=== PATIENT | female | born 1980 | race Caucasian/White ===

== ENCOUNTER 2019-04-20 17:48 | Emergency (ER) | payer OTHER, SELFPAY ==
[2019-04-20 17:58] VITALS: BP 121/86; PULSE 88; RESP 16; O2SAT 100; BMI 24.7
--- NOTE | 2019-04-20 18:24 | W.ED.EAR ---
HPI - Ear Problem General: Chief complaint: Ear Stated complaint: LEFT EAR PAIN Time Seen by Provider: 04/20/19 18:00 History of Present Illness: HPI Narrative: Patient is a 39-year-old female who comes in with ear pain and nasal congestion. Ear pain started yesterday and has gotten worse today. She feels a little pain on right ear but it's her left ear that is the most painful. Denies any drainage and says that hearing out of her left ear sounds little muffled. No external ear pain when touched. Denies a sore throat. Denies any fevers, chest pain, shortness breath, nausea, vomiting, bladder or bowel symptoms. Associated symptoms: Reports ear or mastoid pain; Denies fever(s), headache(s) or neck pain Review of Systems Const: Denies: fever, chills or fatigue Eyes: Denies: change in vision or eye discomfort ENMT: Reports: ear pain, nasal discharge and nasal congestion; Denies: throat pain or painful swallowing Card: Denies: chest pain, palpitations, edema, swelling of feet/ankles, shortness of breath on exertion or shortness of breath when lying down Resp: Denies: shortness of breath, productive cough or non-productive cough GI: Denies: abdominal pain, nausea, vomiting, diarrhea, constipation or blood in stool : Denies: flank pain, painful urination or blood in urine Musc: Denies: neck pain, back pain or extremity swelling Skin/Breast: Denies: rash or new lesion Neuro: Denies: headache, numbness in extremities or weakness in extremities PFSH ED PFSH: Social History Smoking and tobacco status: never smoked Female Reproductive History: Date of last menstrual period: 04/15/19 Physical Exam Const: COMMON NORMALS: oriented x3 HENMT: COMMON NORMALS: normocephalic, external ears normal and external nose normal HEAD & SCALP: normocephalic FACE & SINUS: sinuses nontender NOSE: external nose normal, no nasal discharge and mucous membranes and turbinates abnormal erythematous EXTERNAL EAR: Yes external ears normal TYMPANIC MEMBRANE: TM abnormal TM laterality: right Details: fluid behind TM and left Details: bulging, erythematous and fluid behind TM MOUTH: oral and palatal mucosa normal THROAT: posterior oropharynx normal and uvula midline Neck/C-Spine: COMMON NORMALS: no lymphadenopathy and supple GENERAL: Yes normal visual inspection Resp: COMMON NORMALS: normal respiratory effort, no retractions, no use of accessory muscles and clear to auscultation bilaterally AUSCULTATION: clear to auscultation bilaterally Cardio: COMMON NORMALS: regular rate, regular rhythm, S1 normal heart sound, S2 normal heart sound, no gallops, no clicks, no murmurs and peripheral pulses 2+ throughout RATE: regular rate RHYTHM: regular rhythm HEART SOUNDS: S1 normal and S2 normal PERIPHERAL PULSES: pulses 2+ throughout GI: COMMON NORMALS: normal to inspection, nondistended, normoactive bowel sounds, soft to palpation, non-tender and no masses PALPATION: Yes soft : COMMON NORMALS: Yes no CVA tenderness BLADDER/KIDNEY EXAM: Yes no CVA tenderness Back/Pelvis: COMMON NORMALS: no CVA tenderness Extremity: COMMON NORMALS: normal to inspection Neuro: COMMON NORMALS: oriented x3 and moves all extremities Skin: COMMON NORMALS: no rashes or lesions noted GENERAL SKIN EXAM: no rashes or lesions noted and dry skin Course Vital Signs: Vital signs: Vital Signs Temperature 97.4 F L 04/20/19 18:37 Pulse Rate 84 04/20/19 18:37 Respiratory Rate 16 04/20/19 18:37 Blood Pressure 111/82 04/20/19 18:37 Pulse Oximetry 99 04/20/19 18:37 Discharge Plan Discharge Patient Disposition: Home, Self-Care Clinical Impression: Otitis media Qualifiers: Otitis media type: serous Chronicity: acute Laterality: left Recurrence: non-recurrent Qualified Code(s): H65.02 - Acute serous otitis media, left ear Condition: Stable Prescriptions: New amoxicillin 500 mg capsule 500 mg PO BID 7 Days Qty: 14 RF: 0 Discharge Orders: Discharge Order (Routine); Ordered 04/20/19 Ordered By: Mahesh Samuel Discharge Diet: Regular Discharge Activity: Resume usual activity Patient Instructions: Otitis Media - Adult Activity Restrictions/Additional Instructions: Follow-up with your PCP in 7-10 days for reevaluation. Take full course of antibiotic as prescribed. Drink plenty of fluids and stay hydrated. He can also take either Tylenol or ibuprofen for fever. Discharge Date/Time: 04/20/19 18:44 Coding Level of Care Code ED Furniture Mover Driver for Chg Fwd Exam Comprehensive
[2019-04-20 18:37] VITALS: BP 111/82; PULSE 84; RESP 16; TEMP 36.3; O2SAT 99
== END 2019-04-20 18:44 | disposition home or self-care (01) ==
PROVIDERS: Emergency Provider Physician Assistant
DX: H66.92 Otitis media, unspecified, left ear (principal)
CPT/HCPCS: 99281; 99282

== ENCOUNTER 2021-10-24 01:51 | Observation (INO) | payer OTHER, SELFPAY ==
[2021-10-24] VITALS (16 sets, daily range): BP systolic 98–121; BP diastolic 55–78; PULSE 62–102; RESP 12–18; TEMP 36.6–37.2; O2SAT 95–100; BMI 27.4
[2021-10-24] MEDS: piperacillin-tazobactam 3.375 GM in sodium chloride 0.9% (plus) 50 ML IV ×2 (02:54→18:07)
[2021-10-24] MEDS: sodium chloride 0.9% 1,000 ML 125 ML IV ×2 (02:54→21:29)
--- NOTE | 2021-10-24 05:55 | PC.NURSE ---
Urine HCG negative results confirmed from [facility] in chart.
[2021-10-24] MEDS: ondansetron 2 mg/ML SDV 2 mL 4 MG IVP ×2 (06:29→23:49)
[2021-10-24] MEDS: HYDROmorphone 1 mg/mL INJ 1 mL IVP (06:32)
--- NOTE | 2021-10-24 07:16 | ANES.PREANE2 ---
Pre-Anesthetic Assessment Height/Weight: Height 1.52 m Weight 63.73 kg Temp Pulse Resp BP Pulse Ox O2 Del Method 98.9 F 81 16 121/78 98 10/24/21 02:04 10/24/21 02:04 10/24/21 06:32 10/24/21 02:04 10/24/21 02:04 10/24/21 02:04 Preop Diagnosis: acute appendicitis Operation Date: 10/24/21 10:20 Proposed Procedures p Appendectomy(Not Applicable) - Joni Rodrigues DO Familial anesthetic complications: None Was Beta Liz taken within 24 hours: N/A Was Clonidine taken within 24 hours: N/A Last intake: Intake Last Liquid Date 10/23/21 Last Liquid Time 20:00 Last Solid Date 10/23/21 Last Solid Time 13:00 Social Alcohol (Occasionally ) and No tobacco Exam alert, oriented x 3, clear to auscultation bilaterally and regular rate & rhythm Airway Submandibular: within normal limits Cervical ROM: within normal limits Mallampati: Class I Dentition: full History/ROS No significant complaints Pulmonary None reported CV/HEM None reported METS > 4 None reported Hepatic None reported GI acute appendicitis Metabolic None reported Musc/skel None reported Neuropsych None reported Anesthetic Plan ASA status: 1 Anesthesia: Anesthesia Evaluation and General Other: We discussed risk and benefits of general anesthesia including PONV, sore throat (sometimes severe), corneal abrasion, positioning and peripheral nerve injuries, life threatening allergic reaction, post operative ICU admission requiring prolonged intubation, stroke, heart attack, , and rare incidences of recall. Patient consents to proceed with general anesthesia. Risk of > 500 ml blood loss (7ml/kg in children): No Other Pertinent Information Vomited twice today Medications/Allergies Allergies Allergy/AdvReac Type Severity Reaction Status Date / Time codeine Allergy ADR-Vomitin Verified 04/20/19 18:06 g Current Medications Generic Name Dose Route Start Last Admin Trade Name Freq PRN Reason Stop Dose Admin Hydromorphone HCl 1 mg 10/24/21 02:02 10/24/21 06:32 Hydromorphone 1 Mg/Ml Inj 1 Ml IVP 1 mg Q4H PRN Administration SEVERE PAIN Sodium Chloride 1,000 mls @ 125 mls/hr 10/24/21 02:15 10/24/21 02:54 Sodium Chloride 0.9% IV 125 mls/hr .Q8H MONICA Administration Piperacillin Sod/Tazobactam 50 mls @ 12.5 mls/hr 10/24/21 02:15 10/24/21 02:54 Sod 3.375 gm/ Sodium Chloride IV 12.5 mls/hr Q8H MONICA Administration Protocol Ondansetron HCl 4 mg 10/24/21 02:02 10/24/21 06:29 Ondansetron 2 Mg/Ml Sdv 2 Ml IVP 4 mg Q6H PRN Administration NAUSEA AND VOMITING PFSH Anesthesia Surgical History (Updated 10/24/21 @ 08:08 by Joni Rodrigues DO) History of section History of tubal ligation Social History Smoking and tobacco status: never smoked Female Reproductive History Date of last menstrual period: 04/15/19 Data Anesthesia Cardiac Studies: No Data to Display
--- NOTE | 2021-10-24 08:07 | P.HP_ITS ---
Providers/Chief Complaint Admitting Physician: Joni Rodrigues DO Chief Complaint: Acute Appendicitis History of Present Illness Indy Trevino is a 41 year old female who presents hospital for 1 day history of abdominal pain nausea and vomiting. She reports that the pain began in her right lower quadrant and then moved across her abdomen. The pain is sharp and constant. Palpation makes pain worse. Nothing makes pain better. She denies hematemesis. Denies diarrhea or constipation. Denies fever or chills. She has history of 3 C-sections. She came from an outside hospital with CT diagnosis of acute appendicitis. Review of Systems General: Reports: 10 or more systems reviewed and unremarkable except in HPI and below Medications/Allergies Allergies Allergy/AdvReac Type Severity Reaction Status Date / Time codeine Allergy ADR-Vomitin Verified 04/20/19 18:06 g PFSH Acute PFSH: Surgical History (Updated 10/24/21 @ 08:08 by Joni Rodrigues DO) History of section History of tubal ligation Social History Smoking and tobacco status: never smoked Female Reproductive History: Date of last menstrual period: 04/15/19 Vitals/I&O/Wt Last Vital Signs Temp 98.3 F 10/24/21 07:33 Pulse 102 H 10/24/21 07:33 Resp 18 10/24/21 07:33 BP 108/68 10/24/21 07:33 Pulse Ox 98 10/24/21 07:33 O2 Del Method 10/24/21 07:33 Weight last 48 hrs Weight 140 lb 8 oz Physical Exam Narrative: General : Patient is well developed , no acute distress, oriented x3 Head : Normal cephalic, a-traumatic. Ears : Pinnae and external canal are normal. Hearing is normal. Eyes : PERRLA, Sclera and injection are normal. No conjunctival discharge. Nose : Mucous membranes are without erythema. Throat : buccal mucosa is normal, gums are without significant recession or hypertrophy. Lungs : Equal chest rise bilaterally, no use of accessory muscles, trachea is midline. Cor : Rate and rhythm are normal. Abdomen : Soft, ND, tender to palpation in the lower abdomen, positive Rovsing's, no g/r/m Extremities : No edema, no cyanosis or clubbing, dorsalis pedis pulses are present bilaterally, non-tender to palpation of calves. Upper extremities are normal bilaterally. Back : non-tender to palpation, no CVA tenderness. Neuro : CN II - XII intact, Upper and lower extremities have equal and full strength A&P Assessment and plan (1) Acute appendicitis: Status: Acute Plan Laparoscopic Appendectomy The risks and benefits of the procedure, including but not limited to, bleeding, infection, scar, numbness, pain, damage to surrounding structures, conversion to an open procedure, were explained to the patient. He is understanding of the risks and wishes to proceed Attestations Medical Necessity Statement*: Patient will be kept overnight for antibiotics and observation. If she is perforated she will need additional time in the hospital Coding Level of Care Code Acute Engine Lathe Set Up Operator Tool for Bertha Arndt Diagnoses Acute appendicitis K35.80
--- NOTE | 2021-10-24 08:33 | PC.NURSE ---
pt off floor to OR
[2021-10-24] MEDS: sodium chloride 0.9% 1,000 ML 30 ML IV ×2 (09:34→11:29)
--- NOTE | 2021-10-24 09:39 | SUR.PREOP ---
0935 Preop urine HCG done and results were negative.
--- NOTE | 2021-10-24 10:58 | P.OP_ITS ---
Operative Report Date of procedure: October 24, 2021 Pre-op diagnosis: Preop Diagnosis acute appendicitis Post-op diagnosis: other Post-op diagnosis: Suppurative appendicitis Procedure done: Laparoscopic appendectomy Specimens removed/disposition: Appendix Surgeon: Dr. Joni Rodrigues DO Anesthesia: General Estimated blood loss (mL): 5 Complications: None apparent Brief History: This is a very pleasant 41-year-old female who presented to the hospital with acute appendicitis. Laparoscopic appendectomy was indicated. The risks and benefits were explained and documented. Procedure: Patient was wheeled into the operative room and placed on the OR table in a supine position. Abdomen was inspected prepped and draped in usual sterile fashion. Time-out was performed and all present were in agreement. A 15 blade scalp was used to make a stab incision in the left upper quadrant and intra- abdominal insufflation was achieved using a Veress needle. After localizing the tissue incisions were made and a 12 millimeter trocar was placed into the umbilicus as well as a 5mm in the right lower quadrant and a 5 mm in the left lower quadrant . The appendix was identified and was inflamed and suppurative. I used the Enseal to ligate the mesoappendix at the base. I then used 2 PDS endo-loops to snare the base of the appendix. I then used the Enseal to ligate the appendix distally. The appendix was removed from the abdomen using an Endo-Catch bag through the umbilical incision. I examined the abdomen and no further pathology was identified. Hemostasis was noted. I then closed the umbilical site with a Glen-Izaiah and 0 Vicryl suture in a figure of 8 fashion. All ports removed. Skin was washed and dried. Incisions were closed with 4 O Vicryl in a subcuticular interrupted fashion. Skin glue was applied. Patient tolerated the procedure well.
[2021-10-24 11:21] LABS: OR HCG Qualitative Urine Negative (Negative)
--- NOTE | 2021-10-24 11:34 | ANE.PACU2 ---
Inpatient post-anesthesia follow up: Airway intact: Yes Vital signs: Temperature 97.8 F Pulse Rate 79 Respiratory Rate 18 Blood Pressure 106/65 Pulse Oximetry 100 Oxygen Delivery Me thod Room Air Oxygen Flow Rate 6 Fraction of Inspir ed Oxygen Hydration adequate: Yes Nausea and vomiting: No Pain level: 1 Mental status: Baseline
--- NOTE | 2021-10-24 11:49 | PC.NURSE ---
pt arrived to med surg floor from pacu in stable condition, family at bedside, patient able to void.
--- NOTE | 2021-10-24 18:09 | PC.NURSE ---
Call placed to Dr. Tay, patient requesting Tylenol, VRMARY for 650mg Tylenol PRN Q6hrs as needed for mild pain.
[2021-10-24] MEDS: acetaminophen 325 mg Tablet 650 MG PO (18:31)
[2021-10-24] MEDS: ibuprofen 200 mg Tablet 400 MG PO (22:28)
[2021-10-24] MEDS: HYDROcodone-acetaminophen 5-325 mg Tablet 1 TAB PO (23:56)
[2021-10-25] VITALS: BP 100/57; PULSE 88; RESP 12; TEMP 36.9; O2SAT 98
[2021-10-25] MEDS: piperacillin-tazobactam 3.375 GM in sodium chloride 0.9% (plus) 50 ML IV (01:49)
[2021-10-25 04:00] VITALS: BP 102/58; PULSE 95; RESP 13; TEMP 37; O2SAT 94
[2021-10-25] MEDS: sodium chloride 0.9% 1,000 ML 125 ML IV (05:07)
[2021-10-25] MEDS: HYDROcodone-acetaminophen 5-325 mg Tablet 1 TAB PO (05:12)
[2021-10-25] MEDS: ondansetron 2 mg/ML SDV 2 mL 4 MG IVP (06:06)
[2021-10-25 07:51] VITALS: BP 111/68; PULSE 72; RESP 16; TEMP 36.7; O2SAT 97
--- NOTE | 2021-10-25 09:10 | PM.DCS ---
Discharge Providers Date of Admission: 10/24/21 01:51 Date of Discharge: October 25, 2021 Attending Provider at Admission: Joni Rodrigues DO Attending Provider at Discharge: Joni Rodrigues DO Diagnoses at Discharge Discharge Diagnosis (1) Acute appendicitis: Status: Acute Reason for Visit Reason for Visit: Acute Appendicitis Hospital Course Hospital Course This is a very pleasant 41-year-old female who came to the emergency room with acute appendicitis. She underwent an uneventful laparoscopic appendectomy and was discharged home the next day in good condition Physical Exam Narrative: General : Patient is well developed , no acute distress, oriented x3 Head : Normal cephalic, a-traumatic. Ears : Pinnae and external canal are normal. Hearing is normal. Eyes : PERRLA, Sclera and injection are normal. No conjunctival discharge. Nose : Mucous membranes are without erythema. Throat : buccal mucosa is normal, gums are without significant recession or hypertrophy. Lungs : Equal chest rise bilaterally, no use of accessory muscles, trachea is midline. Cor : Rate and rhythm are normal. Abdomen : Soft, ND, appropriately tender to palpation. Incisions intact without erythema or exudate. No guarding or rebound Extremities : No edema, no cyanosis or clubbing, dorsalis pedis pulses are present bilaterally, non-tender to palpation of calves. Upper extremities are normal bilaterally. Back : non-tender to palpation, no CVA tenderness. Neuro : CN II - XII intact, Upper and lower extremities have equal and full strength Discharge Data Studies Completed and Pending Pending at discharge Category Date Time Status Pathology: Surgical [PTH] Routine Pth 10/24/21 10:53 Ordered Laboratory Results Urine HCG, Qual Negative (Negative) 10/24/21 09:35 Procedures Performed Laparoscopic appendectomy Vitals Last Vital Signs Temp 98.1 F 10/25/21 07:51 Pulse 72 10/25/21 07:51 Resp 16 10/25/21 07:51 BP 111/68 10/25/21 07:51 Pulse Ox 97 10/25/21 07:51 O2 Del Method 10/25/21 07:51 O2 Flow Rate 6 10/24/21 11:11 Discharge Plan Discharge Patient Disposition: Home Condition: Stable Prescriptions: New hydrocodone-acetaminophen 7.5-325 mg tablet 1 tab PO Q6H PRN (Reason: pain) Qty: 20 0RF amoxicillin-pot clavulanate 875-125 mg tablet 1 tab PO BID 13 Days Qty: 26 0RF Discharge Orders: Discharge Order (Routine); Ordered 10/25/21 Ordered By: Joni Rodrigues Referrals: Joni Rodrigues DO [Physician] - 2 weeks Discharge Diet: Advance as tolerated Discharge Activity: Resume usual activity Patient Instructions: Opioid Safety, Post Anesthesia Care Activity Restrictions/Additional Instructions: Do not soak incisions underwater for 2 weeks Discharge Attestations Time Spent in Discharge Care*: less than 30 min Quality Metrics Clinical Quality Measures [ No reported AMI, CVA or VTE this stay] Coding Level of Care Code Acute Chg FW DC note Diagnoses Acute appendicitis K35.80
[2021-10-25 10:47] VITALS: BP 111/68; PULSE 72; RESP 16; TEMP 36.7; O2SAT 97
== END 2021-10-25 11:55 | disposition home or self-care (01) ==
PROVIDERS: Anesthesiology; Admitting Provider Surgery; Visit Provider Surgery
PROC: 0DTJ4ZZ Resection of Appendix, Percutaneous Endoscopic Approach (ICD-10-PCS; CPT 44970; principal; 2021-10-24 09:25)
DX: K35.80 Unspecified acute appendicitis (principal)
CPT/HCPCS: 44970; 84703; 88304; G0378; G0379; J1100; J1170; J1200; J2405; J2543; J2704; J2710; J3010; J3490; J7030